=== PATIENT | female | born 1960 | race Caucasian/White ===

== ENCOUNTER 2019-04-18 15:05 | Emergency (ER) | payer OTHER ==
[~2019-04-18] VITALS: Ht 165.1 cm; Wt 81.7 kg
[~2019-04-18 15:05] MED LIST: ACETAMINOPHEN-1 EAC1 PO; ATIVAN0.5 MG PO; BACTRIM DS TAB1 EACH PO; CELEXA20 MG PO; CLEOCIN HCL150 MG PO; CLEOCIN HCL300 MG PO; COZAAR 25 MG TA25 M1 PO; DOXYCYCLINE 10100 MG PO; ERY-TAB500 MG PO; FLEXERIL PO; HYDROCODON-ACE1 EAC7 PO; IBUPROFEN 800800 M1 PO; IBUPROFEN 800800 MG PO; LISINOPRIL-HCT1 EACH; LISINOPRIL5 MG PO; MACROBID 100 M100 M1 PO; NAPROSYN250 MG PO; NAPROSYN500 MG PO; NEURONTIN 300300 M1 PO; NOHOMEMEDICATIONS; NORCO 5-325 TA1 EAC1 PO; NORCO 5-325 TA1 EACH PO; PAIN RELIEVER500 M3 PO; PERCOCET 5-3251 EACH; PERCOCET 5-3251 EACH PO; PHENERGAN 25 MG25 M1 PO; PRAVACHOL20 MG PO; PRAVASTATIN; PRAVASTATIN SOD20 MG PO; PREDNISONE 20 M20 M1 PO; PREDNISONE 20 M20 MG PO; PROAIR HFA8.5 GM IH; ROBAXIN500 MG PO; TRAMADOL 50 MG50 MG PO; TUSSIONEX PENNKI1 ML PO; TYLENOL EX-STR500 M2; ULTRAM 50MG TAB50 MG PO; VICODIN
[2019-04-18] MEDS ORDERED: CYMBALTA60 MG PO (15:26)
[2019-04-18] MEDS ORDERED: ASPIRIN EC325 M1 PO (15:26)
[2019-04-18] MEDS ORDERED: PLAVIX 75 MG TA75 MG PO (15:27)
[2019-04-18] MEDS ORDERED: LIPITOR40 MG PO (15:27)
[2019-04-18] MEDS ORDERED: LISINOPRIL10 MG PO (15:27)
[2019-04-18] MEDS ORDERED: UNICOMPLEX M TA1 TA1 PO (15:28)
[2019-04-18] MEDS ORDERED: NORCO 5-325 TA1 EAC1 PO (17:44)
[2019-04-18 18:18] VITALS: BP 168/85
== END 2019-04-18 18:19 | disposition home or self-care (01) ==
LOC: M.ERS 15:05
DX: S82.832A Other fracture of upper and lower end of left fibula, initial encounter for closed fracture (principal); M25.551 Pain in right hip; I10 Essential (primary) hypertension; E78.00 Pure hypercholesterolemia, unspecified; F17.210 Nicotine dependence, cigarettes, uncomplicated; Z90.710 Acquired absence of both cervix and uterus; Z88.1 Allergy status to other antibiotic agents; Z86.73 Personal history of transient ischemic attack (TIA), and cerebral infarction without residual deficits; X50.1XXA Overexertion from prolonged static or awkward postures, initial encounter; Y93.89 Activity, other specified; Y92.89 Other specified places as the place of occurrence of the external cause; Y99.8 Other external cause status

== ENCOUNTER 2019-05-22 09:36 | Emergency (ER) | payer OTHER ==
[~2019-05-22] VITALS: Ht 165.1 cm; Wt 81.7 kg
[~2019-05-22 09:36] MED LIST changes: +ASPIRIN EC325 M1 PO; +CYMBALTA60 MG PO; +LIPITOR40 MG PO; +LISINOPRIL10 MG PO; +PLAVIX 75 MG TA75 MG PO; +UNICOMPLEX M TA1 TA1 PO
[2019-05-22] MEDS ORDERED: TRAMADOL 50 MG50 MG PO (10:36)
[2019-05-22] MEDS ORDERED: TESSALON PERLE100 MG PO (10:36)
[2019-05-22] MEDS ORDERED: FLEXERIL PO (10:47)
[2019-05-22 11:00] VITALS: BP 197/90
--- NOTE | 2019-05-22 15:46 | EKG ---
[place] [address] ELECTROCARDIOGRAM REPORT Name: VERNA PLUMMER Room: [facility]#: [id number] Admission: 05/22/19 Attend Phys: Discharge: 05/22/19 Date of : 56 Report #: [id number] THIS REPORT FOR: //name// [facility] ED Test Date: 2019-05-22 Test Time: 10:04:28 Pat Name: VERNA PLUMMER Department: Room: Gender: F Community Health Representative: : 1960 Requested By: Derek Valentino Order Number: [id number] MD: Kian Spivey Measurements Intervals [place] Rate: 93 P: 40 SD: 174 QRS: 60 QRSD: 93 T: 41 QT: 381 QTc: 474 Interpretive Statements Sinus rhythm Compared to ECG 01/30/2015 17:39:41 No significant changes Electronically Signed On 05-22-2019 15:45:55 [employer] by Kian Spivey [email or web address] <ELECTRONICALLY SIGNED> By: Kian Spivey MD, [facility] 05/22/19 1545 1004 [id number] Kian Spivey MD, FACC /EPI
== END 2019-05-22 11:01 | disposition home or self-care (01) ==
LOC: M.ERS 09:36
DX: S23.41XA Sprain of ribs, initial encounter (principal); I10 Essential (primary) hypertension; E78.00 Pure hypercholesterolemia, unspecified; F17.210 Nicotine dependence, cigarettes, uncomplicated; Z90.710 Acquired absence of both cervix and uterus; Z86.73 Personal history of transient ischemic attack (TIA), and cerebral infarction without residual deficits; Z86.018 Personal history of other benign neoplasm; Z88.1 Allergy status to other antibiotic agents; X50.0XXA Overexertion from strenuous movement or load, initial encounter; Y92.89 Other specified places as the place of occurrence of the external cause; Y93.89 Activity, other specified; Y99.8 Other external cause status

== ENCOUNTER 2019-11-16 15:49 | Emergency (ER) | payer OTHER ==
[~2019-11-16] VITALS: Ht 165.1 cm; Wt 86.2 kg
[~2019-11-16 15:49] MED LIST changes: +TESSALON PERLE100 MG PO
[2019-11-16] MEDS ORDERED: PROZAC40 MG PO (16:02)
[2019-11-16] MEDS ORDERED: PRINIVIL20 M1 PO (16:02)
[2019-11-16] MEDS ORDERED: NORCO 5-325 TA1 EAC1 PO (16:59)
[2019-11-16] MEDS ORDERED: CLEOCIN HCL300 MG PO (17:20)
[2019-11-16 17:35] VITALS: BP 159/67
== END 2019-11-16 17:36 | disposition left against medical advice (07) ==
LOC: M.ERS 15:49
DX: S82.431A Displaced oblique fracture of shaft of right fibula, initial encounter for closed fracture (principal); L03.115 Cellulitis of right lower limb; M25.561 Pain in right knee; R60.0 Localized edema; I10 Essential (primary) hypertension; E78.00 Pure hypercholesterolemia, unspecified; F17.210 Nicotine dependence, cigarettes, uncomplicated; Z90.710 Acquired absence of both cervix and uterus; Z86.73 Personal history of transient ischemic attack (TIA), and cerebral infarction without residual deficits; Z88.1 Allergy status to other antibiotic agents; W01.0XXA Fall on same level from slipping, tripping and stumbling without subsequent striking against object, initial encounter; Y93.89 Activity, other specified; Y92.89 Other specified places as the place of occurrence of the external cause; Y99.8 Other external cause status